=== PATIENT | female | born 1990 | race Caucasian/White ===

== ENCOUNTER 2018-07-31 00:51 | Emergency (ER) | payer OTHER ==
[~2018-07-31] VITALS: Ht 160 cm; Wt 65.3 kg
[2018-07-31 01:03] VITALS: Ht 160 cm; Wt 65.3 kg
[2018-07-31 01:35] VITALS: BP 106/76
== END 2018-07-31 01:35 | disposition home or self-care (01) ==
LOC: ED 00:51
DX: R21 Rash and other nonspecific skin eruption (principal); J45.909 Unspecified asthma, uncomplicated